=== PATIENT | female | born 1995 | race American Indian/Alaskan Native ===

== ENCOUNTER 2017-12-01 01:28 | Emergency (ER) | payer MEDICAID, OTHER ==
[2017-12-01 01:48] VITALS: BP 138/79
[2017-12-01] MEDS ORDERED: MOTRIN PO ONE (03:44)
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
== END 2017-12-01 05:11 | disposition home or self-care (01) ==
LOC: ED 01:28
DX: M54.2 Cervicalgia (principal)
CPT/HCPCS: 99282